=== PATIENT | female | born 1970 | race Native Hawaiian/Other Pacific Islander ===

== ENCOUNTER 2022-05-06 10:44 | Emergency (ER) | payer OTHER ==
[~2022-05-06] VITALS: Ht 152.4 cm; Wt 75.0 kg
[2022-05-06 14:31] LABS: AMPHET/METH SCREEN,URINE NEGATIVE (NEGATIVE); BARBITURATE SCREEN, URINE NEGATIVE (NEGATIVE); BENZODIAZEPINES SCREEN,URINE NEGATIVE (NEGATIVE); CANNABINOID SCREEN,URINE NEGATIVE (NEGATIVE); COCAINE SCREEN,URINE NEGATIVE (NEGATIVE); METHADONE SCREEN, URINE NEGATIVE (NEGATIVE); OPIATE SCREEN,URINE NEGATIVE (NEGATIVE); PHENCYCLIDINE SCREEN,URINE NEGATIVE (NEGATIVE)
[2022-05-06] MEDS: LORazepam 1 MG TABLET PO ONE (14:44)
[2022-05-06] MEDS ORDERED: ATOR40TA28 PO (14:56)
[2022-05-06] MEDS ORDERED: GABA-1181 PO (14:56)
[2022-05-06] MEDS ORDERED: FLUT16H NASAL (14:56)
[2022-05-06] MEDS ORDERED: FLUO20CA36 PO (14:56)
[2022-05-06] MEDS ORDERED: OMEP20 PO (14:56)
[2022-05-06] MEDS ORDERED: NORT25 PO (14:56)
[2022-05-06] MEDS ORDERED: QUET50TA PO (14:56)
[2022-05-06] MEDS ORDERED: LISI-894 PO (14:56)
[2022-05-06] MEDS ORDERED: ALBU8HFA IH (15:00)
[2022-05-06] MEDS ORDERED: MOME13HF5 PUFF (15:00)
[2022-05-06] MEDS ORDERED: IPRAHFA IH (15:00)
[2022-05-06 15:38] LABS: BASOPHILS % (AUTO) 0.8 % (0.0-2.0); EOSINOPHILS % (AUTO) 2.2 % (1.0-6.0); HEMATOCRIT 38.1 % (36-46); HEMOGLOBIN 12.6 g/dL (12.0-16.0); LYMPHOCYTES # (AUTO) 1.9 K/uL (1.0-4.8); LYMPHOCYTES % (AUTO) 34.2 % (22.0-44.0); MEAN CORPUSCULAR HEMOGLOBIN 31.9 pg (26.0-34.0); MEAN CORPUSCULAR HGB CONC 33.1 G/dL (31.0-37.0); MEAN CORPUSCULAR VOLUME 96 fL (80-100); MONOCYTES # (AUTO) 0.5 K/uL (0.1-1.0); MONOCYTES % (AUTO) 8.3 % (2.0-9.0); NEUTROPHILS % (AUTO) 54.5 % (40.0-70.0); PLATELET COUNT (AUTO) 389 K/uL (150-450); RED BLOOD CELL COUNT(AUTO) 3.95 MIL/uL (4.00-5.20); RED CELL DISTRIBUTION WIDTH 13.2 % (11.5-14.5)
[2022-05-06 15:47] LABS: ANION GAP 6 mmol/L (8-16); CALCIUM, TOTAL 9.4 mg/dL (8.8-10.5); CARBON DIOXIDE 31 mmol/L (22-29); CHLORIDE 100 mmol/L (98-107); CREATININE 0.67 mg/dL (0.60-1.30); GLUCOSE,RANDOM 102 mg/dL (70-110); SODIUM SERUM 137 mmol/L (136-145); UREA NITROGEN, BLOOD 7 mg/dL (7-18)
[2022-05-06 15:48] LABS: GLOMERULAR FILTR. RATE CALC > 60 mL/min (>60)
[2022-05-06 15:54] LABS: ALANINE AMINOTRANSFERASE 36 U/L (12-78); ALBUMIN 4.7 g/dL (3.4-5.0); ALKALINE PHOSPHATASE 75 U/L (46-116); ASPARTATE AMINOTRANSFERASE 24 U/L (15-37); BILIRUBIN,TOTAL 0.5 mg/dL (0.1-1.0); TOTAL PROTEIN, SERUM 8.1 g/dL (6.4-8.2)
[2022-05-06] MEDS ORDERED: QUET300T2 PO (16:58)
[2022-05-06 17:57] LABS: COVID AG,FIA SOURCE NASOPHARYNGEAL
[2022-05-06 21:30] VITALS: BP 128/79
[2022-05-06] MEDS: QUEtiapine FUMARATE 100 MG TABLET PO ONE (22:20)
== END 2022-05-06 23:38 | disposition short-term general hospital (02) ==
LOC: EMS 10:44
DX: F20.9 Schizophrenia, unspecified (principal); J45.909 Unspecified asthma, uncomplicated; F32.A Depression, unspecified; E78.00 Pure hypercholesterolemia, unspecified; I10 Essential (primary) hypertension; Z98.890 Other specified postprocedural states
CPT/HCPCS: 99285; 87426; 80053; 85025; 36415; 80307; G0480